=== PATIENT | male | born 1985 | race Two or more races ===

== ENCOUNTER 2022-11-08 19:34 | Emergency (ER) | payer MEDICAID, OTHER ==
[~2022-11-08] VITALS: Ht 165.1 cm; Wt 104.5 kg
[2022-11-08] MEDS ORDERED: KETOROLAC TROMETH 60MG/2ML VIAL IM ONE (20:00)
[2022-11-08 20:07] VITALS: BP 121/73
[2022-11-08 20:39] LABS: Urine Bacteria NONE SEEN /hpf (None Seen); Urine Blood Negative /uL (Negative); Urine Specific Gravity 1.025 (1.001-1.035); Urine Sperm PRESENT /hpf (None Seen); Urine WBC 1 /hpf (0 - 3)
[2022-11-09] MEDS ORDERED: DOCU-94 PO (00:15)
[2022-11-09] MEDS ORDERED: LACT10SO3 PO (00:15)
== END 2022-11-09 00:16 | disposition home or self-care (01) ==
LOC: ER 19:34
DX: K59.00 Constipation, unspecified (principal)
CPT/HCPCS: 74018; 81001